=== PATIENT | male | born 1950 | race Caucasian/White ===

== ENCOUNTER 2019-07-09 18:21 | Emergency (ER) | payer MEDICARE, MEDICAID ==
[~2019-07-09] VITALS: Ht 177.8 cm; Wt 82.3 kg
[2019-07-09] MEDS ORDERED: CLINDAMYCIN 150 MG CAP PO ONE (21:15)
[2019-07-09] MEDS ORDERED: IBUPROFEN 600 MG TAB PO ONE (21:15)
[2019-07-09] MEDS ORDERED: CLEO300C2 PO (21:22)
[2019-07-09] MEDS ORDERED: IBUP-1022 PO (21:22)
[2019-07-09 21:31] VITALS: BP 152/72
== END 2019-07-09 21:32 | disposition home or self-care (01) ==
LOC: M ED 18:21
DX: K04.7 Periapical abscess without sinus (principal); K08.9 Disorder of teeth and supporting structures, unspecified; Z88.0 Allergy status to penicillin

== ENCOUNTER → 2021-05-04 | Outpatient (CLI) | payer MEDICARE, MEDICAID ==
[~2021-05-04] MED LIST: CLEO300C2 PO; IBUP-1022 PO
== END ==
LOC: M LABSMTC 09:23
PROVIDERS: ATTEND Internal Medicine Cardiovascular Disease
DX: I35.1 Nonrheumatic aortic (valve) insufficiency (principal); Z11.52 Encounter for screening for COVID-19

== ENCOUNTER 2023-08-26 10:29 | Emergency (ER) | payer OTHER, MEDICAID ==
[~2023-08-26] VITALS: Ht 175.3 cm; Wt 75.4 kg
[2023-08-26 11:03] LABS: BASO # 0.1 10^3/uL (0.0-0.2); BASO % 0.5 % (0.0-1.0); EOS # 0.1 10^3/uL (0.0-0.5); EOS % 0.5 % (0.0-3.0); HEMATOCRIT 51.1 % (42.0-52.0); HEMOGLOBIN 16.8 g/dl (13.5-17.5); LYMPH # 1.5 10^3/uL (1.5-5.0); LYMPH % 14.2 % (24.0-44.0); MEAN CORPUSCULAR HEMOGLOBIN 29.7 pg (27.0-33.0); MEAN CORPUSCULAR HGB CONC 32.9 g/dl (32.0-36.5); MEAN CORPUSCULAR VOLUME 90.3 fl (80.0-96.0); MONO # 0.5 10^3/uL (0.0-0.8); NEUTROPHILS # 8.7 10^3/uL (1.5-8.5); NEUTROPHILS % 79.3 % (36.0-66.0); PLATELET COUNT, AUTOMATED 262 10^3/uL (150-450); RED BLOOD COUNT 5.66 10^6/uL (4.30-6.10); WHITE BLOOD COUNT 10.9 10^3/uL (4.0-10.0)
[2023-08-26 11:31] LABS: CK-MB VALUE MASS 1.1 NG/ML (<3.6)
[2023-08-26 11:32] LABS: BLOOD UREA NITROGEN 14 MG/DL (9-23); CALCIUM LEVEL 9.1 MG/DL (8.3-10.6); CARBON DIOXIDE LEVEL 25 MMOL/L (20-31); CHLORIDE LEVEL 111 MMOL/L (98-107); CREATININE FOR GFR 0.98 MG/DL (0.70-1.30); GLOMERULAR FILTRATION RATE > 60.0 (>42); GLUCOSE, FASTING 159 MG/DL (74-106); POTASSIUM SERUM 4.8 MMOL/L (3.5-5.1); SODIUM LEVEL 143 MMOL/L (136-145)
[2023-08-26 11:36] LABS: FREE T4 1.26 NG/DL (0.89-1.76); THYROID STIMULATING HORMONE 1.904 uIU/ML (0.55-4.78)
[2023-08-26 11:40] LABS: CPK CREATINE PHOSPHOKINASE 72 U/L (46-171); MB/CK RELATIVE INDEX 1.52 (< OR =4)
[2023-08-26 11:41] LABS: ALBUMIN 4.2 G/DL (3.2-5.2); BILIRUBIN,DIRECT 0.3 MG/DL (<0.4); BILIRUBIN,TOTAL 1.2 MG/DL (0.3-1.2); PHOSPHORUS LEVEL 4.3 MG/DL (2.4-5.1); TOTAL PROTEIN 6.7 G/DL (5.7-8.2)
[2023-08-26] MEDS ORDERED: ISOVUE-370 76% 100ML VIAL As Ordered ONE (12:55)
[2023-08-26 13:00] LABS: CK-MB VALUE MASS 1.3 NG/ML (<3.6)
[2023-08-26 13:14] LABS: MB/CK RELATIVE INDEX 3.17 (< OR =4)
[2023-08-26] MEDS ORDERED: RA M500C PO (14:14)
[2023-08-26] MEDS ORDERED: [UNRECOGNIZED DRUG - CODE] PO (14:14)
[2023-08-26] MEDS ORDERED: ATOR1TAB19 PO (14:14)
[2023-08-26] MEDS ORDERED: [UNRECOGNIZED DRUG - CODE] PO (14:14)
[2023-08-26] MEDS ORDERED: ASPI81TA26 PO (14:14)
[2023-08-26] MEDS ORDERED: HOME MED LIST COMPLETE! XX SCH (14:15)
[2023-08-26] MEDS: KETOROLAC 30 MG/ML 1ML VIAL IV ONE (18:28)
[2023-08-26 19:15] VITALS: BP 131/86; TEMP 98; O2SAT 97
== END 2023-08-26 19:29 | disposition short-term general hospital (02) ==
LOC: M ED 10:29
DX: R55 Syncope and collapse (principal); N20.1 Calculus of ureter; I11.0 Hypertensive heart disease with heart failure; I50.22 Chronic systolic (congestive) heart failure; I25.5 Ischemic cardiomyopathy; E78.5 Hyperlipidemia, unspecified; Z95.4 Presence of other heart-valve replacement; Z95.810 Presence of automatic (implantable) cardiac defibrillator; F17.200 Nicotine dependence, unspecified, uncomplicated; Z88.0 Allergy status to penicillin
CPT/HCPCS: 70450; 71045; 71275; 74177; 80048; 80076; 82550; 82553; 83690; 83735; 84100; 84439; 84443; 84484; 85025; 87486; 87581; 87633; 87798; 93005; 93041; 94760; 96374; 99285; J1885; Q9967

== ENCOUNTER 2023-09-03 20:47 | Observation (INO) | payer OTHER, MEDICAID ==
[~2023-09-03] VITALS: Ht 175.3 cm; Wt 76.4 kg
[~2023-09-03 20:47] MED LIST changes: +ASPI81TA26 PO; +ATOR1TAB19 PO; +RA M500C PO; +[UNRECOGNIZED DRUG - CODE] PO; +[UNRECOGNIZED DRUG - CODE] PO
[2023-09-03] MEDS ORDERED: CEFU1TAB20 PO (21:24)
[2023-09-03] MEDS ORDERED: Prevagen PO (21:24)
[2023-09-03 21:29] LABS: BASO % 0.6 % (0.0-1.0); EOS % 2.6 % (0.0-3.0); HEMATOCRIT 44.9 % (42.0-52.0); HEMOGLOBIN 14.9 g/dl (13.5-17.5); LYMPH # 2.9 10^3/uL (1.5-5.0); LYMPH % 26.2 % (24.0-44.0); MEAN CORPUSCULAR HEMOGLOBIN 29.8 pg (27.0-33.0); MEAN CORPUSCULAR HGB CONC 33.2 g/dl (32.0-36.5); MEAN CORPUSCULAR VOLUME 89.8 fl (80.0-96.0); MONO % 7.3 % (2.0-8.0); NEUTROPHILS # 6.9 10^3/uL (1.5-8.5); PLATELET COUNT, AUTOMATED 310 10^3/uL (150-450)
[2023-09-03 21:30] LABS: BASO # 0.1 10^3/uL (0.0-0.2); EOS # 0.3 10^3/uL (0.0-0.5); MONO # 0.8 10^3/uL (0.0-0.8)
[2023-09-03] MEDS: ENTRESTO 24-26MG TABLET (SACUBITRIL/VALSARTAN) PO ONE (21:39)
[2023-09-03 21:51] LABS: CK-MB VALUE MASS 1.4 NG/ML (<3.6)
[2023-09-03 21:53] LABS: ALBUMIN 3.4 G/DL (3.2-5.2); ALKALINE PHOSPHATASE 70 U/L (46-116); ALT/SGPT 39 U/L (7.0-40); AST/SGOT 33 U/L (<34); BILIRUBIN,DIRECT 0.3 MG/DL (<0.4); BILIRUBIN,TOTAL 0.8 MG/DL (0.3-1.2); BLOOD UREA NITROGEN 17 MG/DL (9-23); CALCIUM LEVEL 8.9 MG/DL (8.3-10.6); CARBON DIOXIDE LEVEL 26 MMOL/L (20-31); CHLORIDE LEVEL 109 MMOL/L (98-107); CREATININE FOR GFR 0.82 MG/DL (0.70-1.30); GLOMERULAR FILTRATION RATE > 60.0 (>42); GLUCOSE, FASTING 112 MG/DL (74-106); POTASSIUM SERUM 4.7 MMOL/L (3.5-5.1); SODIUM LEVEL 143 MMOL/L (136-145); TOTAL PROTEIN 5.6 G/DL (5.7-8.2)
[2023-09-03 21:55] LABS: CPK CREATINE PHOSPHOKINASE 55 U/L (46-171); MB/CK RELATIVE INDEX 2.54 (< OR =4)
[2023-09-03] MEDS ORDERED: ISOVUE-370 76% 100ML VIAL As Ordered ONE (23:10)
[2023-09-04] MEDS: FUROSEMIDE 40MG/4ML VIAL IV ONE (00:23)
[2023-09-04] MEDS ORDERED: HOME MED LIST COMPLETE! XX SCH (00:50)
[2023-09-04] MEDS ORDERED: DOXYCYCLINE HYCLATE 100MG TABLET PO ONE (01:55)
[2023-09-04] MEDS ORDERED: ACETAMINOPHEN TAB 650MG DOSE (2X325MG) PO PRN (02:15)
[2023-09-04] MEDS: DOXYCYCLINE HYCLATE 100 MG in D5W MINI-BAG PLUS 100 ML IV ONE (02:44)
[2023-09-04 04:17] VITALS: BP 117/65; TEMP 97; O2SAT 96
[2023-09-04] MEDS: HEPARIN SOD (PORCINE) 5000UNITS/ML 1ML VIAL/SYRINGE SC SCH (06:41)
[2023-09-04 06:58] LABS: BLOOD UREA NITROGEN 13 MG/DL (9-23); CALCIUM LEVEL 8.6 MG/DL (8.3-10.6); CARBON DIOXIDE LEVEL 28 MMOL/L (20-31); CHLORIDE LEVEL 107 MMOL/L (98-107); CREATININE FOR GFR 0.75 MG/DL (0.70-1.30); GLOMERULAR FILTRATION RATE > 60.0 (>42); GLUCOSE, FASTING 96 MG/DL (74-106); SODIUM LEVEL 143 MMOL/L (136-145)
[2023-09-04 07:57] VITALS: BP 95/65; TEMP 97.5; O2SAT 95
[2023-09-04] MEDS: CARVedilol 3.125 MG TAB PO SCH (09:00)
[2023-09-04] MEDS: FUROSEMIDE 40MG/4ML VIAL IV SCH (09:00)
[2023-09-04] MEDS: DOXYCYCLINE HYCLATE 100MG TABLET PO SCH (09:31)
[2023-09-04 11:48] VITALS: TEMP 98; O2SAT 91
[2023-09-04 12:00] VITALS: BP 100/68
[2023-09-04 12:16] LABS: PROCALCITONIN <0.04 ng/ml
[2023-09-04] MEDS ORDERED: FURO20TA2 PO (12:33)
[2023-09-04] MEDS ORDERED: METO25TA PO (12:33)
== END 2023-09-04 14:30 | disposition home health service (06) ==
LOC: EDBD 20:47 → M ED 20:47 → M ED INP 09-04 01:51 → M PCU 09-04 04:06
PROVIDERS: ADMIT Internal Medicine; ATTEND Internal Medicine
DX: I50.23 Acute on chronic systolic (congestive) heart failure (principal); J96.01 Acute respiratory failure with hypoxia; I42.9 Cardiomyopathy, unspecified; E87.70 Fluid overload, unspecified; R53.81 Other malaise; J90 Pleural effusion, not elsewhere classified; I11.0 Hypertensive heart disease with heart failure; R59.0 Localized enlarged lymph nodes; R91.8 Other nonspecific abnormal finding of lung field; I35.0 Nonrheumatic aortic (valve) stenosis; Z95.2 Presence of prosthetic heart valve; Z95.0 Presence of cardiac pacemaker; I25.10 Atherosclerotic heart disease of native coronary artery without angina pectoris; N20.0 Calculus of kidney; F03.90 Unspecified dementia, unspecified severity, without behavioral disturbance, psychotic disturbance, mood disturbance, and anxiety; I25.2 Old myocardial infarction; E78.00 Pure hypercholesterolemia, unspecified; Z88.0 Allergy status to penicillin; Z79.899 Other long term (current) drug therapy; Z79.82 Long term (current) use of aspirin; Z79.2 Long term (current) use of antibiotics; Z82.49 Family history of ischemic heart disease and other diseases of the circulatory system
CPT/HCPCS: 36415; 71045; 71275; 80048; 80076; 81001; 82550; 82553; 83605; 83735; 83880; 84145; 84484; 85025; 87040; 87486; 87581; 87633; 87798; 93005; 93041; 94760; 96365; 96366; 96372; 96375; 97161; 97530; 99285; G0378; J1940; Q9967

== ENCOUNTER 2023-11-01 09:52 | Inpatient (IN) | payer MEDICARE, MEDICAID ==
[~2023-11-01 09:52] MED LIST changes: +CEFU1TAB20 PO; +FURO20TA2 PO; +METO25TA PO; +Prevagen PO
[2023-11-01] MEDS: ALBUTEROL SULFATE 2.5MG/0.5ML INH NEB SOLN INH ONE (10:00)
[2023-11-01] MEDS: IPRATROPIUM 0.5MG/ALBUTEROL 2.5MG INH SOL UD 3ML (DUONEB) NEB ONE ×2 (10:00→13:50)
[2023-11-01 10:02] VITALS: BP 116/78
[2023-11-01] MEDS ORDERED: ISOVUE-370 76% 100ML VIAL As Ordered ONE (10:03)
[2023-11-01 10:27] LABS: BASO # 0.1 10^3/uL (0.0-0.2); BASO % 0.4 % (0.0-1.0); EOS # 0.2 10^3/uL (0.0-0.5); EOS % 1.2 % (0.0-3.0); HEMATOCRIT 48.3 % (42.0-52.0); HEMOGLOBIN 15.6 g/dl (13.5-17.5); LYMPH # 1.2 10^3/uL (1.5-5.0); LYMPH % 9.7 % (24.0-44.0); MEAN CORPUSCULAR HEMOGLOBIN 29.6 pg (27.0-33.0); MEAN CORPUSCULAR HGB CONC 32.3 g/dl (32.0-36.5); MEAN CORPUSCULAR VOLUME 91.7 fl (80.0-96.0); MONO # 0.9 10^3/uL (0.0-0.8); MONO % 6.8 % (2.0-8.0); NEUTROPHILS # 10.4 10^3/uL (1.5-8.5); NEUTROPHILS % 81.4 % (36.0-66.0); PLATELET COUNT, AUTOMATED 236 10^3/uL (150-450); RED BLOOD COUNT 5.27 10^6/uL (4.30-6.10); WHITE BLOOD COUNT 12.7 10^3/uL (4.0-10.0)
[2023-11-01 10:40] LABS: INR 1.17; PARTIAL THROMBOPLASTIN TIME 24.6 SECONDS (24.8-34.2); PROTHROMBIN TIME 14.5 SECONDS (12.5-14.5)
[2023-11-01 10:42] VITALS: TEMP 98
[2023-11-01 10:59] LABS: ALBUMIN 3.6 G/DL (3.2-5.2); ALKALINE PHOSPHATASE 59 U/L (46-116); ALT/SGPT 18 U/L (7.0-40); AST/SGOT 22 U/L (<34); BILIRUBIN,DIRECT 0.5 MG/DL (<0.4); BILIRUBIN,TOTAL 1.9 MG/DL (0.3-1.2); BLOOD UREA NITROGEN 18 MG/DL (9-23); CALCIUM LEVEL 9.1 MG/DL (8.3-10.6); CARBON DIOXIDE LEVEL 20 MMOL/L (20-31); CHLORIDE LEVEL 110 MMOL/L (98-107); CK-MB VALUE MASS 2.3 NG/ML (<3.6); CREATININE FOR GFR 0.98 MG/DL (0.70-1.30); GLOMERULAR FILTRATION RATE > 60.0 (>42); GLUCOSE, FASTING 196 MG/DL (74-106); MAGNESIUM LEVEL 1.9 MG/DL (1.8-2.4); POTASSIUM SERUM 4.2 MMOL/L (3.5-5.1); SODIUM LEVEL 144 MMOL/L (136-145)
[2023-11-01 11:03] LABS: THYROID STIMULATING HORMONE 2.551 uIU/ML (0.55-4.78)
[2023-11-01 11:07] LABS: PROCALCITONIN <0.04 ng/ml
[2023-11-01 11:08] LABS: CPK CREATINE PHOSPHOKINASE 94 U/L (46-171); MB/CK RELATIVE INDEX 2.44 (< OR =4)
[2023-11-01 11:18] LABS: VENOUS BASE EXCESS -5.8 (-2.0-2.0); VENOUS HCO3 19.5 MMOL/L (23.0-27.0); VENOUS O2 SATURATION 93.1 % (60.0-80.0); VENOUS PARTIAL PRESSURE CO2 37.5 mmHg (38.0-50.0); VENOUS PARTIAL PRESSURE O2 73.8 mmHg (30.0-50.0); VENOUS PH 7.333 UNITS (7.330-7.430); VENOUS STANDARD HCO3 19.7 MMOL/L; VENOUS TOTAL CO2 20.6 MMOL/L (24.0-28.0)
[2023-11-01] MEDS: methylPREDNISolone 125MG 2ML VIAL IV ONE (12:18)
[2023-11-01 13:17] LABS: CK-MB VALUE MASS 3.6 NG/ML (<3.6)
[2023-11-01] MEDS ORDERED: FURO20TA2 PO (13:18)
[2023-11-01 13:19] LABS: MB/CK RELATIVE INDEX 2.16 (< OR =4)
[2023-11-01] MEDS ORDERED: HOME MED LIST COMPLETE! XX SCH (13:20)
[2023-11-01] MEDS ORDERED: LORazepam 1 MG TAB PO PRN (13:50)
[2023-11-01 15:18] VITALS: O2SAT 97
[2023-11-01] MEDS: MORPHINE 10MG/0.5ML ORAL CONCENTRATE SOLUTION U/D SL PRN ×2 (15:18→23:52)
[2023-11-02] MEDS: MORPHINE 10MG/0.5ML ORAL CONCENTRATE SOLUTION U/D SL PRN (20:30)
[2023-11-03] MEDS: MORPHINE 10MG/0.5ML ORAL CONCENTRATE SOLUTION U/D SL PRN ×2 (12:48→18:13)
[2023-11-03] MEDS ORDERED: diazePAM 10MG/2ML SYRINGE IM PRN (16:15)
[2023-11-03] MEDS ORDERED: hydrOXYzine 10MG/5ML SYRUP PO PRN (16:20)
[2023-11-03] MEDS: diazePAM 5MG TABLET PO PRN (20:41)
[2023-11-05] MEDS: ATROPINE SULFATE 1% OPHTH SOLN 2ML BTL SL PRN (09:38)
[2023-11-05] MEDS: SCOPOLAMINE 1MG TRANSDERMAL PATCH TOP SCH (11:02)
== END 2023-11-05 15:02 | disposition expired | DRG 64 ==
LOC: EDBD 09:52 → M ED 09:52 → M ED INP 09:53 → OBSVTOIN 11:57 → M MS5PR 16:20
PROVIDERS: ADMIT Student in an Organized Health Care Education/Training Program; ATTEND Student in an Organized Health Care Education/Training Program
DX: I63.9 Cerebral infarction, unspecified (principal); J96.01 Acute respiratory failure with hypoxia; G93.41 Metabolic encephalopathy; I50.22 Chronic systolic (congestive) heart failure; E87.20 Acidosis, unspecified; J44.1 Chronic obstructive pulmonary disease with (acute) exacerbation; Z66 Do not resuscitate; E78.00 Pure hypercholesterolemia, unspecified; I25.10 Atherosclerotic heart disease of native coronary artery without angina pectoris; R57.0 Cardiogenic shock; F03.90 Unspecified dementia, unspecified severity, without behavioral disturbance, psychotic disturbance, mood disturbance, and anxiety; Z79.899 Other long term (current) drug therapy; Z88.0 Allergy status to penicillin; Z11.52 Encounter for screening for COVID-19; Z95.810 Presence of automatic (implantable) cardiac defibrillator